=== PATIENT | male | born 1970 | race Two or more races ===

== ENCOUNTER 2024-07-07 10:03 | Emergency (ER) | payer MEDICAID ==
[~2024-07-07] VITALS: Ht 172.7 cm; Wt 83.9 kg
[2024-07-07 10:19] VITALS: TEMP 98.3
[2024-07-07] MEDS ORDERED: KETOROLAC TROMETHAMINE INJ 30 MG/ML VIAL ONE (10:57)
[2024-07-07] MEDS: KETOROLAC TROMETHAMINE INJ 30 MG/ML VIAL IM ONE (11:02)
[2024-07-07 11:08] LABS: APPEARANCE,URINE CLEAR (CLEAR); BILIRUBIN,URINE NEGATIVE (NEGATIVE); BLOOD, URINE 1+ Ery/uL (NEGATIVE); COLOR,URINE YELLOW (YELLOW); KETONES,URINE NEGATIVE (NEGATIVE); LEUKOCYTE ESTERASE ,URINE NEGATIVE (NEGATIVE); NITRITE, URINE NEGATIVE (NEGATIVE); PROTEIN,URINE NEGATIVE (NEGATIVE); UGLUCOSE NEGATIVE (NEGATIVE); UROBILINOGEN,URINE 0.2 EU/dL (0.2)
[2024-07-07 11:20] LABS: ADD URINE CULTURE NO; BACTERIA,URINE Rare /HPF (None Seen); RBC,URINE 0-2 /HPF (0-2); SQUAMOUS EPITHELIAL CELL,UR Few /HPF (None Seen); WBC,URINE 0-2 /HPF (0-3)
[2024-07-07 11:21] LABS: BASOPHILS # (AUTO) 0.1 K/uL (0.0-0.2); BASOPHILS % (AUTO) 0.8 % (0.0-2.0); EOSINOPHILS # (AUTO) 0.1 K/uL (0.0-0.7); EOSINOPHILS % (AUTO) 1.1 % (0.0-6.0); HEMATOCRIT 38 % (39-51); HEMOGLOBIN 12.2 g/dL (13.5-17.5); LYMPHOCYTES # (AUTO) 1.6 K/uL (0.8-4.8); LYMPHOCYTES % (AUTO) 22.3 % (20.0-44.0); MEAN CORPUSCULAR HEMOGLOBIN 20 PG (26.0-33.0); MEAN CORPUSCULAR HGB CONC 32 g/dl (31.0-36.0); MEAN CORPUSCULAR VOLUME 64 fL (80-96); MONOCYTES # (AUTO) 0.4 K/uL (0.1-1.30); MONOCYTES % (AUTO) 5.2 % (2.0-12.0); NEUTROPHILS # (AUTO) 5.1 K/uL (1.8-8.9); NEUTROPHILS % (AUTO) 70.6 % (43.0-81.0); PLATELET COUNT (AUTO) 185 K/uL (150-450); RED BLOOD CELL COUNT(AUTO) 5.96 MIL/uL (4.5-6.0); RED CELL DISTRIBUTION WIDTH 16.4 % (11.5-15.0); WHITE BLOOD COUNT (AUTO) 7.2 K/uL (4.3-11.0)
[2024-07-07 11:31] LABS: CREATININE 1.2 mg/dL (0.6-1.3); POTASSIUM 4.2 mmol/L (3.5-5.1)
[2024-07-07 11:37] LABS: ALBUMIN 4.2 g/dL (3.4-5.0); BILIRUBIN,DIRECT 0.2 mg/dL (0.0-0.2); TOTAL PROTEIN, SERUM 7.7 g/dL (6.4-8.2)
[2024-07-07] MEDS ORDERED: CIPR500T5 PO (13:27)
[2024-07-07 13:37] VITALS: BP 135/85; O2SAT 98
== END 2024-07-07 13:38 | disposition home or self-care (01) ==
LOC: ER 10:14
DX: R10.9 Unspecified abdominal pain (principal); R30.0 Dysuria
CPT/HCPCS: 99285; 74176; 96372; 85025; 80048; 83690; 80076; 81001; 36415; J1885